=== PATIENT | female | born 1965 | race Two or more races ===

== ENCOUNTER → 2018-03-17 | Outpatient (CLI) | payer OTHER | LOC: BMCIMAGING 08:09 | PROVIDERS: ATTEND Orthopaedic Surgery | DX: S62.636D Displaced fracture of distal phalanx of right little finger, subsequent encounter for fracture with routine healing (principal) ==

== ENCOUNTER → 2018-04-15 | Outpatient (CLI) | payer OTHER | LOC: BMCIMAGING 08:04 | PROVIDERS: ATTEND Orthopaedic Surgery | DX: S62.647D Nondisplaced fracture of proximal phalanx of left little finger, subsequent encounter for fracture with routine healing (principal) ==

== ENCOUNTER → 2018-05-13 | Outpatient (CLI) | payer OTHER | LOC: BMCIMAGING 08:09 | PROVIDERS: ATTEND Orthopaedic Surgery | DX: S62.667D Nondisplaced fracture of distal phalanx of left little finger, subsequent encounter for fracture with routine healing (principal) ==